=== PATIENT | male | born 1965 | race Two or more races ===

== ENCOUNTER 2018-08-07 11:33 | Emergency (ER) | payer SELFPAY ==
[~2018-08-07] VITALS: Ht 165.1 cm; Wt 187.0 kg
[2018-08-07 11:44] VITALS: BP 138/86
--- NOTE | 2018-08-07 12:08 | NUR ---
patient seated in ENT chair, MD Julio to bedside now, L eye medial sclera is dark and bloody, no discharge from the eye, patient reports "wet" feeling in that eye, some "light cloud" visual disturbance in L eye only, VSS on room air, patient reports no medical history, PWD, call light in reach. states "subconjunctival hematoma medial L eye"
--- NOTE | 2018-08-07 12:46 | NUR ---
VAs done, patient has been discharged following dc instructions, ambulated safely to discharge desk, all questions answered.
== END 2018-08-07 12:32 | disposition home or self-care (01) ==
LOC: ED 12:31
DX: G43.C0 Periodic headache syndromes in child or adult, not intractable (principal); H11.32 Conjunctival hemorrhage, left eye; M19.90 Unspecified osteoarthritis, unspecified site
CPT/HCPCS: 99282